=== PATIENT | male | born 1995 | race Hispanic/Latino ===

== ENCOUNTER 2017-12-09 14:46 | Emergency (ER) | payer MEDICAID, OTHER ==
[2017-12-09] MEDS ORDERED: KETOROLAC TROMETHAMINE 60 MG/2 ML VIAL ONE (14:55)
[2017-12-09] MEDS ORDERED: CYCLOBENZAPRINE HCL 10 MG TABLET ONE (14:55)
== END 2017-12-09 16:07 | disposition home or self-care (01) ==
LOC: EDH 14:46
DX: S29.012A Strain of muscle and tendon of back wall of thorax, initial encounter (principal); Z72.0 Tobacco use; V49.49XA Driver injured in collision with other motor vehicles in traffic accident, initial encounter; Y93.89 Activity, other specified; Y92.89 Other specified places as the place of occurrence of the external cause; Y99.8 Other external cause status
CPT/HCPCS: 96372; 99283; J1885